=== PATIENT | female | born 1945 | race American Indian/Alaskan Native ===

== ENCOUNTER 2016-12-18 12:40 | Outpatient (CLI) | payer MEDICARE ==
--- NOTE | 2016-12-18 16:07 | Mammography Report ---
BILATERAL DIGITAL SCREENING MAMMOGRAM with CAD: 12/18/16 12:40:00 CLINICAL: Routine screening. COMPARISON: 12/12/15 FINDINGS: There are bilateral scattered areas of fibroglandular density.No mass, architectural distortion or suspicious calcifications. IMPRESSION: No mammographic evidence of malignancy. BI-RADS CATEGORY: 1 -- Negative RECOMMENDATION: Routine mammographic screening in one year. COMMENT: Patient follow-up letters are generated by our [employer] application.
== END 2016-12-18 12:41 | disposition home or self-care (01) ==
LOC: SPVWC 12:40
PROVIDERS: ATTEND Internal Medicine
DX: Z12.31 Encounter for screening mammogram for malignant neoplasm of breast (principal)
CPT/HCPCS: 77067; G0202

== ENCOUNTER 2017-12-22 10:40 | Outpatient (CLI) | payer MEDICARE ==
--- NOTE | 2017-12-23 08:27 | Mammography Report ---
BILATERAL DIGITAL SCREENING MAMMOGRAM with CAD: 12/22/17 10:40:00 CLINICAL: Routine screening. COMPARISON:12/18/16 FINDINGS: There are bilateral scattered areas of fibroglandular density. A round left focal asymmetry with partially irregular and partially ill-defined margins requires additional imaging.No architectural distortion or suspicious calcifications.The right breast is negative. IMPRESSION: Left asymmetry requiring further workup. BI-RADS CATEGORY: 0 -- Additional Imaging Evaluation Required RECOMMENDATION: Recall for left mediolateral , spot magnification CC and MLO views and left breast ultrasound. ACR BI-RADS MAMMOGRAPHIC CODES: 0 = Needs additional imaging evaluation; 1 = Negative; 2 = Benign; 3 = Probably benign; 4 = Suspicious; 5 = Malignant; 6 = Known biopsy-proven malignancy COMMENT: 1. Dense breast tissue, i.e., adenosis, fibrocystic changes, etc., may obscure an underlying neoplasm. 2. Approximately 10% of cancers are not detected with mammography. 3. A negative mammography report should not delay biopsy if a clinically suspicious mass is present. COMMENT: Patient follow-up letters are generated via our [employer] application.
== END 2017-12-22 10:41 | disposition home or self-care (01) ==
LOC: SPVWC 10:40
PROVIDERS: ATTEND Internal Medicine
DX: Z12.31 Encounter for screening mammogram for malignant neoplasm of breast (principal)
CPT/HCPCS: 77067

== ENCOUNTER 2017-12-25 14:57 | Outpatient (CLI) | payer MEDICARE ==
--- NOTE | 2017-12-25 16:04 | Mammography Report ---
Left mammogram and left breast ultrasound: Patient recalled for left asymmetry in the upper outer breast. Magnification spot CC and lateral compression images demonstrates a 7.3 mm irregular shaped asymmetry. No calcifications. No definite spiculation. Ultrasound in the area of concern demonstrates a circumscribed 7 mm anechoic mass. Elongated anechoic structure in the axilla. Impression: Mammographic and ultrasound findings correspond in size and location but the morphology on mammography is not typical for a cyst. Recommendation: Ultrasound guided aspiration of cyst with followup mammogram to confirm disappearance of mammographic finding. This is been explained to the patient who will call to schedule procedure. BI-RADS CATEGORY: 4 = Suspicious ACR BI-RADS MAMMOGRAPHIC CODES: 0 = Needs additional imaging evaluation; 1 = Negative; 2 = Benign; 3 = Probably benign; 4 = Suspicious; 5 = Malignant; 6 = Known biopsy-proven malignancy COMMENT: 1. Dense breast tissue, i.e., adenosis, fibrocystic changes, etc., may obscure an underlying neoplasm. 2. Approximately 10% of cancers are not detected with mammography. 3. A negative mammography report should not delay biopsy if a clinically suspicious mass is present.
== END 2017-12-25 14:58 | disposition home or self-care (01) ==
LOC: SPVWC 14:57
PROVIDERS: ATTEND Internal Medicine
DX: R92.8 Other abnormal and inconclusive findings on diagnostic imaging of breast (principal)

== ENCOUNTER 2018-01-02 13:14 | Outpatient (CLI) | payer MEDICARE ==
--- NOTE | 2018-01-02 14:45 | Mammography Report ---
LEFT DIGITAL DIAGNOSTIC MAMMOGRAM: 01/02/18 13:14:00 CLINICAL: For clip placement immediately status post ultrasound guided needle biopsy. COMPARISON:12/25/17 FINDINGS: A biopsy clip is now identified within the previously described lesion at 3 o'clock near the pectoral muscle approximately 12 cm from the nipple. The lesion has partially collapsed and injected lidocaine obscures the margins. IMPRESSION: Concordant clip placement status post ultrasound biopsy. BI-RADS CATEGORY: 4--Suspicious Pathology pending.
--- NOTE | 2018-01-02 15:16 | Ultrasound Report ---
ULTRASOUND GUIDED NEEDLE ASPIRATION AND ULTRASOUND GUIDED NEEDLE CORE BIOPSY LEFT BREAST WITH CLIP PLACEMENT: 12/03/17 CLINICAL: Cyst at 3 o'clock. COMPARISON :12/25/17 FINDINGS: The procedure was explained to the patient and informed consent was obtained. Ultrasound demonstrated the previously identified oval anechoic lesion at 3 o'clock approximately 8 cm from the nipple. I marked the breast with a felt tip marker and a time out was called. The skin was prepped with Betadine and anesthetized with 1% lidocaine. Ultrasound guided needle aspiration performed with an 18-gauge needle. However, minimal fluid was aspirated. Fluid was placed in Cytolyte and sent to the lab for analysis. Needle core biopsy was then performed through a tiny dermatotomy using ultrasound guidance, 2% lidocaine with epinephrine for deep anesthesia and a 14-gauge Achieve biopsy device. 4 cores were obtained and placed in formalin. The lesion demonstrated minimal collapse after biopsy. A clip was deployed within the lesion The patient tolerated the procedure well and there were no apparent complications. Hemostasis was achieved with minimal pressure and a sterile dressing was applied. A two view mammogram demonstrated concordant placement of the clip and a poorly defined lesion with margins likely obscured by lidocaine. She left the department in good condition and was given instructions for wound care and followup. IMPRESSION: Uncomplicated ultrasound guided needle aspiration and core biopsy with clip placement left breast.
== END 2018-01-02 13:15 | disposition home or self-care (01) ==
LOC: SPVWC 13:14
PROVIDERS: ATTEND Internal Medicine
DX: C50.912 Malignant neoplasm of unspecified site of left female breast (principal)
CPT/HCPCS: 19000; 19083; 77065; 88112; 88305; 88342; 88361; A4648